=== PATIENT | male | born 1975 | race African-American/Black ===

== ENCOUNTER 2019-07-12 23:38 | Inpatient (IN) | payer OTHER, MEDICAID ==
[~2019-07-12] VITALS: Ht 188 cm; Wt 156.3 kg
[2019-07-12 21:50] VITALS: BP 136/92
[~2019-07-12 23:38] MED LIST: ALD2525; ASPI-1158 PO; BENA40TA9; CARV6.2548 PO; DIGO125T20; FURO-151; FURO-152; HYDR-519
[2019-07-13] VITALS: BP 104/64
[2019-07-13] MEDS ORDERED: ALLO300T2 PO (00:17)
[2019-07-13] MEDS ORDERED: BUSP15TA3 PO (00:17)
[2019-07-13] MEDS ORDERED: ALPR1TAB2 PO (00:17)
[2019-07-13] MEDS ORDERED: HYDR-4135 PO (00:17)
[2019-07-13] MEDS ORDERED: MAGN200T5 PO (00:17)
[2019-07-13] MEDS ORDERED: MINO2.5T2 PO (00:17)
[2019-07-13] MEDS ORDERED: CARV25TA47 PO (00:17)
[2019-07-13] MEDS ORDERED: SPIR25TA PO (00:17)
[2019-07-13] MEDS ORDERED: ARIP5TAB58 PO (00:17)
[2019-07-13] MEDS ORDERED: FURO-152 PO (00:17)
[2019-07-13] MEDS ORDERED: OMEP40CA12 PO (00:17)
[2019-07-13] MEDS ORDERED: DULO60CA64 PO (00:17)
[2019-07-13] MEDS ORDERED: SACU1TAB7 PO (00:17)
[2019-07-13] MEDS ORDERED: CYCL10TA7 PO (00:17)
[2019-07-13] MEDS ORDERED: SILD100T69 PO (00:17)
[2019-07-13] MEDS ORDERED: HYDR12.54 PO (00:17)
[2019-07-13] MEDS ORDERED: OXYC30TA89 PO (00:17)
[2019-07-13] MEDS ORDERED: CLON0.3T PO (00:17)
[2019-07-13] MEDS ORDERED: FERR325T6 PO (00:17)
[2019-07-13] MEDS ORDERED: CHOL200077 PO (00:17)
[2019-07-13] MEDS ORDERED: ASPI-1158 PO (00:17)
[2019-07-13] MEDS ORDERED: ONDANSETRON HCL 4MG/2ML INJ IV PRN ×2 (01:15→08:00)
[2019-07-13] MEDS: MORPHINE SULFATE 2 MG/ML CPJ (NOT FOR IM USE) IV PRN ×2 (01:36→08:54)
[2019-07-13 04:00] VITALS: BP 135/84
[2019-07-13 07:05] LABS: CHLORIDE 97 mEq/L (98-107)
[2019-07-13 07:15] LABS: BASOPHILS % 0.4 % (0.0-2.0); EOSINOPHILS % 0.6 % (0.0-5.0); HEMATOCRIT. 36.7 % (42.0-52.0); HEMOGLOBIN. 12.4 g/dL (14.0-18.0); LYMPHOCYTES % 37.9 % (20.0-50.0); MEAN CORPUSCULAR HEMOGLOBIN 29.5 pg (28.0-32.0); MEAN CORPUSCULAR VOLUME 87.5 fL (80.0-94.0); MEAN PLATELET VOLUME 7.6 fl (7.4-10.4); MONOCYTES % 12.9 % (2.0-8.0); NEUTROPHILS % 48.2 % (40.0-76.0); PLATELET 243 x1000/uL (130-400)
[2019-07-13] MEDS ORDERED: LORAZEPAM 2MG/ML CPJ IV PRN (08:00)
[2019-07-13] MEDS ORDERED: IPRATROPIUM/ALBUTEROL 0.5-3(2.5)MG/3ML NEB HHN PRN (08:00)
[2019-07-13] MEDS ORDERED: GUAIFENESIN 200MG/10ML SUGAR FREE UDC PO PRN (08:00)
[2019-07-13] MEDS ORDERED: MAGNESIUM/ALUMINUM HYDROXIDE/SIMETHICONE 30ML UDC PO PRN (08:00)
[2019-07-13] MEDS ORDERED: ACETAMINOPHEN 325MG TABLET PO PRN (08:00)
[2019-07-13] MEDS ORDERED: DOCUSATE SODIUM 100MG CAPSULE PO PRN (08:00)
[2019-07-13] MEDS ORDERED: DIPHENHYDRAMINE 50MG/ML VIAL IV PRN (08:00)
[2019-07-13] MEDS ORDERED: HYDRALAZINE 20MG/ML VIAL IV PRN (08:00)
[2019-07-13 08:09] VITALS: BP 150/82
[2019-07-13] MEDS: ENOXAPARIN 40MG/0.4ML SYR SUBCUT SCH ×2 (08:53→21:42)
[2019-07-13 12:05] VITALS: BP 140/94
[2019-07-13] MEDS: SODIUM CHLORIDE 0.9% INJ 3ML FLUSH IVF SCH ×2 (14:05→21:46)
[2019-07-13] MEDS: HYDROCODONE/ACETAMINOPHEN 10/325MG TABLET PO PRN ×2 (14:06→18:48)
[2019-07-13] MEDS: CLONIDINE 0.1MG TABLET PO PRN (14:08)
[2019-07-13 15:38] VITALS: BP 140/84
[2019-07-13 16:29] LABS: CREATINE KINASE 263 IU/L (39-308)
[2019-07-13 16:30] LABS: CREATINE KINASE MB FRACTION < 1.0 ng/mL (0.5-3.6)
[2019-07-13 17:02] LABS: T4 FREE 1.1 ng/dL (0.76-1.46)
[2019-07-13] MEDS ORDERED: ENOXAPARIN 40MG/0.4ML SYR SUBCUT SCH (18:00)
[2019-07-13 18:18] LABS: CLARITY URINE CLEAR (CLEAR); COLOR URINE YELLOW (YELLOW); KETONES URINE NEGATIVE (NEGATIVE); LEUKOCYTE ESTERASE URINE NEGATIVE (NEGATIVE); NITRITE URINE NEGATIVE (NEGATIVE); OCCULT BLOOD URINE NEGATIVE (NEGATIVE); PROTEIN URINE NEGATIVE (NEGATIVE); UROBILINOGEN URINE 0.2 E.U./dL (0.2-1.0)
[2019-07-13 18:35] LABS: *AMPHETAMINES SCREEN URINE NEGATIVE (NEGATIVE); *BARBITURATES SCREEN URINE NEGATIVE (NEGATIVE); *BENZODIAZEPINES SCREEN URINE NEGATIVE (NEGATIVE); *COCAINE SCREEN URINE NEGATIVE (NEGATIVE); CANNABINOID URINE SCREEN PRESUMTIVE POSITIVE (NEGATIVE); METHADONE URINE SCREEN NEGATIVE (NEGATIVE); OPIATES URINE SCREEN PRESUMTIVE POSITIVE (NEGATIVE); PHENCYCLIDINE URINE SCREEN NEGATIVE (NEGATIVE)
[2019-07-13 20:00] VITALS: BP_SYST 142; BP_SYST 150; BP_SYST 165; BP_DIAS 80; BP_DIAS 87; BP_DIAS 94
[2019-07-13 20:04] LABS: PROTHROMBIN TIME 10.5 sec (9.6-11.0)
[2019-07-13] MEDS: CARVEDILOL 3.125 MG TABLET PO SCH (21:42)
[2019-07-13] MEDS: HYDRALAZINE HCL 50MG TABLET PO SCH (21:46)
[2019-07-14] VITALS (7 sets, daily range): BP systolic 116–213; BP diastolic 43–103
[2019-07-14] MEDS: HYDROCODONE/ACETAMINOPHEN 10/325MG TABLET PO PRN ×2 (02:10→20:54)
[2019-07-14 04:35] LABS: BASOPHILS % 0.6 % (0.0-2.0); EOSINOPHILS % 0.9 % (0.0-5.0); HEMATOCRIT. 39.9 % (42.0-52.0); HEMOGLOBIN. 13.2 g/dL (14.0-18.0); LYMPHOCYTES % 43.1 % (20.0-50.0); MEAN CORPUSCULAR HEMOGLOBIN 28.9 pg (28.0-32.0); MEAN CORPUSCULAR VOLUME 87.7 fL (80.0-94.0); MEAN PLATELET VOLUME 7.8 fl (7.4-10.4); MONOCYTES % 13.8 % (2.0-8.0); NEUTROPHILS % 41.6 % (40.0-76.0); PLATELET 238 x1000/uL (130-400); RED BLOOD CELL COUNT 4.56 mill/uL (4.7-6.1); RED CELL DISTRIBUTION WIDTH 15.2 % (11.6-14.6)
[2019-07-14] MEDS: SODIUM CHLORIDE 0.9% INJ 3ML FLUSH IVF SCH ×3 (05:17→20:54)
[2019-07-14] MEDS: HYDRALAZINE HCL 50MG TABLET PO SCH ×3 (05:17→20:52)
[2019-07-14 08:06] LABS: CHLORIDE 101 mEq/L (98-107)
[2019-07-14 08:14] LABS: PHOSPHORUS 4.3 mg/dL (2.5-4.9)
[2019-07-14] MEDS: ENOXAPARIN 40MG/0.4ML SYR SUBCUT SCH ×2 (09:07→20:55)
[2019-07-14] MEDS: CARVEDILOL 3.125 MG TABLET PO SCH ×2 (09:07→20:52)
[2019-07-14] MEDS: FUROSEMIDE 20MG TABLET PO SCH (09:07)
[2019-07-14] MEDS: MORPHINE SULFATE 2 MG/ML CPJ (NOT FOR IM USE) IV PRN ×2 (09:08→15:09)
[2019-07-15] VITALS: BP 161/89
[2019-07-15] MEDS: MORPHINE SULFATE 2 MG/ML CPJ (NOT FOR IM USE) IV PRN ×2 (03:02→11:44)
[2019-07-15 04:00] VITALS: BP 154/98
[2019-07-15 05:58] LABS: HEMATOCRIT 39.6 % (42.0-52.0); HEMOGLOBIN 13.3 g/dL (14.0-18.0); MEAN CORPUSCULAR HEMOGLOBIN 29.2 pg (28.0-32.0); MEAN CORPUSCULAR VOLUME 87.4 fL (80.0-94.0); PLATELET 264 x1000/uL (130-400); RED BLOOD CELL COUNT 4.54 mill/uL (4.7-6.1)
[2019-07-15 05:59] LABS: CHLORIDE 101 mEq/L (98-107)
[2019-07-15] MEDS: HYDRALAZINE HCL 50MG TABLET PO SCH ×3 (06:37→20:59)
[2019-07-15] MEDS: SODIUM CHLORIDE 0.9% INJ 3ML FLUSH IVF SCH ×3 (06:37→21:00)
[2019-07-15 08:00] VITALS: BP 164/89
[2019-07-15] MEDS: ENOXAPARIN 40MG/0.4ML SYR SUBCUT SCH ×2 (09:00→21:00)
[2019-07-15] MEDS: FUROSEMIDE 20MG TABLET PO SCH (09:00)
[2019-07-15] MEDS: CARVEDILOL 3.125 MG TABLET PO SCH ×2 (09:00→20:59)
[2019-07-15 16:00] VITALS: BP 191/97
[2019-07-15] MEDS: CLONIDINE 0.1MG TABLET PO PRN (18:03)
[2019-07-15] MEDS: HYDROCODONE/ACETAMINOPHEN 10/325MG TABLET PO PRN (18:04)
[2019-07-15 20:00] VITALS: BP_SYST 139; BP_SYST 164; BP_SYST 168; BP_DIAS 72; BP_DIAS 91; BP_DIAS 99
[2019-07-15] MEDS: ATORVASTATIN CALCIUM 10MG TABLET PO SCH (20:59)
[2019-07-16] VITALS (12 sets, daily range): BP systolic 109–176; BP diastolic 64–106
[2019-07-16] MEDS: MORPHINE SULFATE 2 MG/ML CPJ (NOT FOR IM USE) IV PRN (01:33)
[2019-07-16] MEDS: SODIUM CHLORIDE 0.9% INJ 3ML FLUSH IVF SCH ×3 (06:30→22:38)
[2019-07-16] MEDS: HYDRALAZINE HCL 50MG TABLET PO SCH ×3 (06:30→22:39)
[2019-07-16 07:27] LABS: HEMATOCRIT 39.2 % (42.0-52.0); HEMOGLOBIN 13.3 g/dL (14.0-18.0); MEAN CORPUSCULAR HEMOGLOBIN 29.5 pg (28.0-32.0); RED CELL DISTRIBUTION WIDTH 15.1 % (11.6-14.6)
[2019-07-16 07:40] LABS: CHLORIDE 104 mEq/L (98-107)
[2019-07-16] MEDS: FUROSEMIDE 20MG TABLET PO SCH (09:00)
[2019-07-16] MEDS: ENOXAPARIN 40MG/0.4ML SYR SUBCUT SCH (09:00)
[2019-07-16] MEDS: CARVEDILOL 3.125 MG TABLET PO SCH ×2 (09:00→21:20)
[2019-07-16 09:34] LABS: PLATELET 251 x1000/uL (130-400)
[2019-07-16] MEDS ORDERED: HEPARIN SODIUM 1,000 UNIT/1ML VIAL IV ONE (11:44)
[2019-07-16] MEDS ORDERED: NITROGLYCERIN 50MCG/ML 10ML VIAL (CATH LAB) IV ONE (11:44)
[2019-07-16] MEDS ORDERED: NICARDIPINE 100MCG/ML 10ML VIAL (CATH LAB) IV ONE (11:44)
[2019-07-16] MEDS ORDERED: IODIXANOL 320MG/ML 100 ML BOTTLE IV ONE (12:15)
[2019-07-16] MEDS ORDERED: LIDOCAINE HCL 1% 20ML VIAL (Pyxis) INJ ONE (12:16)
[2019-07-16] MEDS ORDERED: FENTANYL CITRATE/PF 50MCG/ML 2ML VIAL ONE (12:39)
[2019-07-16] MEDS ORDERED: MIDAZOLAM HCL 2 MG/2 ML VIAL ONE (12:40)
[2019-07-16] MEDS ORDERED: HYDRALAZINE 20MG/ML VIAL ONE (13:20)
[2019-07-16] MEDS: HYDROCODONE/ACETAMINOPHEN 10/325MG TABLET PO PRN ×2 (15:18→21:21)
[2019-07-16] MEDS: ATORVASTATIN CALCIUM 10MG TABLET PO SCH (21:19)
[2019-07-17] VITALS (16 sets, daily range): BP systolic 118–178; BP diastolic 50–103
[2019-07-17] MEDS: MORPHINE SULFATE 2 MG/ML CPJ (NOT FOR IM USE) IV PRN (02:24)
[2019-07-17] MEDS: HYDRALAZINE HCL 50MG TABLET PO SCH ×3 (05:25→21:51)
[2019-07-17] MEDS: HYDROCODONE/ACETAMINOPHEN 10/325MG TABLET PO PRN ×3 (05:25→21:52)
[2019-07-17] MEDS: SODIUM CHLORIDE 0.9% INJ 3ML FLUSH IVF SCH ×3 (05:25→21:53)
[2019-07-17] MEDS: CLONIDINE 0.1MG TABLET PO PRN (06:59)
[2019-07-17] MEDS ORDERED: LIDOCAINE HCL 1% 20ML VIAL (Pyxis) INJ ONE (07:51)
[2019-07-17] MEDS: FUROSEMIDE 20MG TABLET PO SCH (09:44)
[2019-07-17] MEDS: CARVEDILOL 3.125 MG TABLET PO SCH ×2 (09:45→21:51)
[2019-07-17] MEDS: ATORVASTATIN CALCIUM 10MG TABLET PO SCH (21:51)
[2019-07-18] VITALS (8 sets, daily range): BP systolic 130–187; BP diastolic 66–113
[2019-07-18] MEDS: HYDRALAZINE HCL 50MG TABLET PO SCH (05:24)
[2019-07-18] MEDS: HYDROCODONE/ACETAMINOPHEN 10/325MG TABLET PO PRN (05:25)
[2019-07-18] MEDS: SODIUM CHLORIDE 0.9% INJ 3ML FLUSH IVF SCH (05:26)
[2019-07-18] MEDS: FUROSEMIDE 20MG TABLET PO SCH (08:56)
[2019-07-18] MEDS: CARVEDILOL 3.125 MG TABLET PO SCH (08:56)
[2019-07-18] MEDS ORDERED: HYDROCODONE/ACETAMINOPHEN 10/325MG TABLET PO PRN (10:15)
[2019-07-18] MEDS: CLONIDINE 0.1MG TABLET PO PRN (10:25)
== END 2019-07-18 14:00 | disposition home or self-care (01) | DRG 286 ==
LOC: 6WST 23:38 → 3WST 07-16 14:13
PROVIDERS: ADMIT Internal Medicine; ATTEND Internal Medicine
PROC: 4A023N7 Measurement of Cardiac Sampling and Pressure, Left Heart, Percutaneous Approach (ICD-10-PCS; principal; 2019-07-16)
PROC: B2111ZZ Fluoroscopy of Multiple Coronary Arteries using Low Osmolar Contrast (ICD-10-PCS; 2019-07-16)
PROC: B2151ZZ Fluoroscopy of Left Heart using Low Osmolar Contrast (ICD-10-PCS; 2019-07-16)
PROC: 05H533Z Insertion of Infusion Device into Right Subclavian Vein, Percutaneous Approach (ICD-10-PCS; 2019-07-17)
PROC: B546ZZA Ultrasonography of Right Subclavian Vein, Guidance (ICD-10-PCS; 2019-07-17)
PROC: B5161ZA Fluoroscopy of Right Subclavian Vein using Low Osmolar Contrast, Guidance (ICD-10-PCS; 2019-07-17)
DX: I42.0 Dilated cardiomyopathy (principal); I50.23 Acute on chronic systolic (congestive) heart failure; Z68.41 Body mass index [BMI] 40.0-44.9, adult; I42.8 Other cardiomyopathies; I11.0 Hypertensive heart disease with heart failure; D64.9 Anemia, unspecified; D72.819 Decreased white blood cell count, unspecified; E03.9 Hypothyroidism, unspecified; E78.5 Hyperlipidemia, unspecified; F14.10 Cocaine abuse, uncomplicated; F41.9 Anxiety disorder, unspecified; J44.9 Chronic obstructive pulmonary disease, unspecified; F17.210 Nicotine dependence, cigarettes, uncomplicated; F15.10 Other stimulant abuse, uncomplicated; Z96.641 Presence of right artificial hip joint; F10.10 Alcohol abuse, uncomplicated; G90.8 Other disorders of autonomic nervous system; I25.10 Atherosclerotic heart disease of native coronary artery without angina pectoris; M10.9 Gout, unspecified; F12.10 Cannabis abuse, uncomplicated; R73.9 Hyperglycemia, unspecified; E66.01 Morbid (severe) obesity due to excess calories; I25.2 Old myocardial infarction; Z91.14 Patient's other noncompliance with medication regimen; Z82.49 Family history of ischemic heart disease and other diseases of the circulatory system; Z79.899 Other long term (current) drug therapy
CPT/HCPCS: 36415; 36573; 71045; 76937; 80048; 80053; 80061; 80305; 81003; 82550; 82553; 83036; 83735; 83880; 84100; 84439; 84443; 84484; 85025; 85027; 85379; 93005; 93306; 93458; 93880; 93970; 97530; C1725; C1769; C1887; C1893; J0360; J1644; J1650; J2250; J2270; J3010; J3490; Q9967